=== PATIENT | female | born 1965 | race Caucasian/White ===

== ENCOUNTER → 2018-06-12 | Outpatient (CLI) | payer OTHER ==
[~2018-06-12] MED LIST: CALC625T23 PO; CRAN500C PO; CYAN1TAB29 PO; FAMO-79 PO; INUL1TAB4 PO; LORA10CA PO; MULT-658 PO; VALA500T4 PO
[2018-06-12 16:18] LABS: BASOPHILS # (AUTO) 0.07 x10^3/uL (0-0.1); BASOPHILS % (AUTO) 1 % (0-1); EOSINOPHILS # (AUTO) 0.21 x10^3/uL (0-0.4); EOSINOPHILS % (AUTO) 2 % (1-7); LYMPHOCYTES # (AUTO) 2.56 x10^3/uL (1-3.4); LYMPHOCYTES % (AUTO) 28 % (22-44); MD NO; MEAN CORPUSCULAR HEMOGLOBIN 31.3 pg (27.0-34.8); MEAN CORPUSCULAR HGB CONC 33.6 g/dL (32.4-35.8); MEAN CORPUSCULAR VOLUME 93.2 fL (80-100); MEAN PLATELET VOLUME 8.1 fL (7.4-10.4); MONOCYTES # (AUTO) 0.67 x10^3/uL (0.2-0.8); MONOCYTES % (AUTO) 7 % (2-9); NEUTROPHILS # (AUTO) 5.74 x10^3/uL (1.8-6.8); NEUTROPHILS % (AUTO) 62 % (42-75); PLATELET COUNT 323 x10^3/uL (130-400); RED BLOOD COUNT 4.68 x10^6/uL (3.82-5.3)
[2018-06-12 16:30] LABS: ALBUMIN 3.9 g/dL (3.4-5.0); ANION GAP 7 mmol/L (5-15); CALCIUM 10.2 mg/dL (8.5-10.1); CHLORIDE 105 mmol/L (98-107)
[2018-06-12 16:33] LABS: ALANINE AMINOTRANSFERASE 29 U/L (12-78); ALKALINE PHOSPHATASE 61 U/L (45-117); BILIRUBIN,TOTAL 0.9 mg/dL (0.2-1.0); TOTAL PROTEIN 7.4 g/dL (6.4-8.2)
== END | disposition home or self-care (01) ==
LOC: STAR 15:25
PROVIDERS: ATTEND Surgery
DX: Z01.818 Encounter for other preprocedural examination (principal); Z88.2 Allergy status to sulfonamides; Z88.5 Allergy status to narcotic agent
CPT/HCPCS: 36415; 71046; 80053; 85025; 93005

== ENCOUNTER 2018-06-26 06:14 | Inpatient (IN) | payer OTHER ==
[2018-06-12 15:47] VITALS: BP 119/84
[~2018-06-26] VITALS: Ht 162.6 cm; Wt 81.0 kg
[2018-06-26] MEDS ORDERED: FAMOTIDINE 20 MG TABLET PO ONE (06:30)
[2018-06-26] MEDS ORDERED: ACETAMINOPHEN 500 MG TABLET PO ONE (06:30)
[2018-06-26] MEDS ORDERED: GABAPENTIN 300 MG CAPSULE PO ONE (06:30)
[2018-06-26] MEDS ORDERED: SCOPOLAMINE PATCH, 1.5MG PATCH.TD72 TD ONE (06:30)
[2018-06-26] MEDS ORDERED: METOCLOPRAMIDE 10MG TABLET PO ONE (06:30)
[2018-06-26] MEDS ORDERED: KETAMINE 10 MG/ML, 20ML ONE (06:51)
[2018-06-26] MEDS ORDERED: FENTANYL PF 100 MCG/2ML ONE (06:51)
[2018-06-26] MEDS ORDERED: MIDAZOLAM 1 MG/ML, 2ML ONE (06:51)
[2018-06-26] MEDS ORDERED: PROPOFOL 10 MG/ML, 20ML ONE ×2 (06:51→08:18)
[2018-06-26] MEDS ORDERED: ROCURONIUM 10MG/ML,5ML ONE (06:53)
[2018-06-26] MEDS ORDERED: SUCCINYLCHOLINE 20 MG/ML, 10ML ONE ×2 (06:53→08:18)
[2018-06-26] MEDS ORDERED: LACTATED RINGERS 1,000 ML IV SCH (06:54)
[2018-06-26] MEDS ORDERED: LIDOCAINE-MPF 1%, 2ML INFIL ONE (07:00)
[2018-06-26] MEDS ORDERED: METR500T PO (07:01)
[2018-06-26] MEDS ORDERED: NEOMYCIN PO (07:01)
[2018-06-26] MEDS ORDERED: ESTROGEN PATCH TP (07:01)
[2018-06-26] MEDS ORDERED: INDOCYANINE GREEN 25 MG VIAL ONE ×2 (07:02→14:32)
[2018-06-26] MEDS ORDERED: BUPIVACAINE/PF 0.5% ONE (07:02)
[2018-06-26] MEDS ORDERED: cloniDINE/PF 100 MCG/ML, 10 ML ONE (07:11)
[2018-06-26] MEDS ORDERED: ONDANSETRON ODT 8 MG PO ONE (07:30)
[2018-06-26] MEDS ORDERED: PROPOFOL 50 ML ONE (07:40)
[2018-06-26] MEDS ORDERED: ROCURONIUM 10 MG/ML,10ML ONE (08:18)
[2018-06-26] MEDS ORDERED: NEOSTIGMINE 1 MG/ML, 10ML ONE (08:18)
[2018-06-26] MEDS ORDERED: PROPOFOL 10 MG/ML, 50ML ONE (08:18)
[2018-06-26] MEDS ORDERED: CEFOTETAN 2 GM ONE (08:18)
[2018-06-26] MEDS ORDERED: GLYCOPYRROLATE 0.2MG/1ML, 5ML ONE (08:18)
[2018-06-26] MEDS ORDERED: DEXAMETHASONE 4 MG/ML, 1ML ONE (08:18)
[2018-06-26] MEDS ORDERED: PROPOFOL 100 ML ONE (09:22)
[2018-06-26] MEDS ORDERED: OXYcodone 5 MG/5 ML ORAL.SOL UDC PO PRN (10:00)
[2018-06-26] MEDS ORDERED: PROMETHAZINE 25 MG/ML, 1ML IV PRN (10:00)
[2018-06-26] MEDS ORDERED: ALBUTEROL SULFATE 2.5 MG/3 ML NPPB PRN (10:00)
[2018-06-26] MEDS ORDERED: HYDROmorphone 1 MG/ML, 1ML IV PRN (10:00)
[2018-06-26] MEDS ORDERED: FENTANYL PF 100 MCG/2ML IV PRN (10:00)
[2018-06-26] MEDS ORDERED: MEPERIDINE/PF 25MG/0.5ML IVPush PRN (10:00)
[2018-06-26] MEDS ORDERED: OXYcodone 5 MG/5 ML ORAL.SOL UDC ONE (10:45)
[2018-06-26] MEDS ORDERED: LORazepam 1MG TABLET PO PRN (13:30)
[2018-06-26] MEDS ORDERED: D5%-0.45NACL+KCL 20MEQ 1,000 ML IV SCH (13:30)
[2018-06-26] MEDS ORDERED: CALCIUM CARBONATE 500 MG TAB.CHEW PO PRN (13:30)
[2018-06-26] MEDS ORDERED: HYDROmorphone 1 MG/ML, 1ML IVPush PRN (13:30)
[2018-06-26] MEDS ORDERED: DIPHENHYDRAMINE 50 MG/ML, 1ML IVPush PRN (13:30)
[2018-06-26] MEDS ORDERED: DIPHENHYDRAMINE 25 MG CAPSULE PO PRN (13:30)
[2018-06-26] MEDS ORDERED: OXYcodone IR 5MG TABLET PO PRN (13:30)
[2018-06-26] MEDS ORDERED: ONDANSETRON 2MG/ML, 2ML IV PRN (13:30)
[2018-06-26] MEDS ORDERED: SCOPOLAMINE PATCH, 1.5MG PATCH.TD72 TD PRN (13:30)
[2018-06-26] MEDS ORDERED: DEXAMETHASONE 4 MG/ML, 1ML IVPush PRN (13:30)
[2018-06-26] MEDS ORDERED: LORazepam 2 MG/ML, 1ML IVPush PRN (13:30)
[2018-06-26] MEDS ORDERED: HALOPERIDOL 5 MG/ML IVPush PRN (13:30)
[2018-06-26 13:40] VITALS: BP 144/91
[2018-06-26] MEDS: ACETAMINOPHEN 100 ML IVPB SCH ×2 (13:59→20:38)
[2018-06-26] MEDS: IBUPROFEN 800 MG TABLET PO SCH ×2 (15:56→19:09)
[2018-06-26 20:21] VITALS: BP 109/75
[2018-06-26] MEDS: FAMOTIDINE 20 MG TABLET PO SCH (20:59)
[2018-06-26] MEDS ORDERED: ESTRADIOL TP ONE (22:30)
[2018-06-27 00:21] VITALS: BP 123/86
[2018-06-27] MEDS: IBUPROFEN 800 MG TABLET PO SCH ×3 (00:25→21:06)
[2018-06-27] MEDS: ACETAMINOPHEN 100 ML IVPB SCH ×2 (01:40→08:31)
[2018-06-27 03:42] LABS: MEAN CORPUSCULAR HEMOGLOBIN 32.2 pg (27.0-34.8); MEAN CORPUSCULAR HGB CONC 34.4 g/dL (32.4-35.8); MEAN CORPUSCULAR VOLUME 93.5 fL (80-100); MEAN PLATELET VOLUME 8.4 fL (7.4-10.4); PLATELET COUNT 320 x10^3/uL (130-400); RED BLOOD COUNT 3.84 x10^6/uL (3.82-5.3); RED CELL DISTRIBUTION WIDTH 12.8 % (9.6-15.2)
[2018-06-27 03:43] LABS: ANION GAP 7 mmol/L (5-15); CALCIUM 8.1 mg/dL (8.5-10.1); CHLORIDE 105 mmol/L (98-107); CREATININE 0.72 mg/dL (0.55-1.02)
[2018-06-27 03:56] VITALS: BP 120/84
[2018-06-27 04:30] LABS: BASOPHILS # (AUTO) 0.01 x10^3/uL (0-0.1); BASOPHILS % (AUTO) 0 % (0-1); EOSINOPHILS % (AUTO) 0 % (1-7); LYMPHOCYTES # (AUTO) 1.48 x10^3/uL (1-3.4); LYMPHOCYTES % (AUTO) 11 % (22-44); MD SCAN; MONOCYTES # (AUTO) 1.49 x10^3/uL (0.2-0.8); MONOCYTES % (AUTO) 11 % (2-9); NEUTROPHILS # (AUTO) 10.98 x10^3/uL (1.8-6.8); NEUTROPHILS % (AUTO) 79 % (42-75)
[2018-06-27 07:39] VITALS: BP 129/84
[2018-06-27] MEDS: ENOXAPARIN 40 MG/0.4 ML SQ SCH (08:31)
[2018-06-27] MEDS: VALACYCLOVIR 500MG TABLET PO SCH (08:31)
[2018-06-27] MEDS: FAMOTIDINE 20 MG TABLET PO SCH ×2 (08:31→21:06)
[2018-06-27] MEDS: LORATADINE 10 MG TABLET PO SCH (08:31)
[2018-06-27] MEDS: D5%-0.45NACL+KCL 20MEQ 1,000 ML IV SCH (12:57)
[2018-06-27 13:30] VITALS: BP 113/73
[2018-06-27 20:00] VITALS: BP 118/74
[2018-06-28] MEDS: D5%-0.45NACL+KCL 20MEQ 1,000 ML IV SCH ×2 (01:23→15:55)
[2018-06-28 05:05] VITALS: BP 106/68
[2018-06-28 05:33] LABS: BASOPHILS # (AUTO) 0.01 x10^3/uL (0-0.1); BASOPHILS % (AUTO) 0 % (0-1); EOSINOPHILS # (AUTO) 0.16 x10^3/uL (0-0.4); EOSINOPHILS % (AUTO) 2 % (1-7); LYMPHOCYTES % (AUTO) 19 % (22-44); MD NO; MEAN CORPUSCULAR HEMOGLOBIN 31.9 pg (27.0-34.8); MEAN CORPUSCULAR HGB CONC 34.3 g/dL (32.4-35.8); MEAN CORPUSCULAR VOLUME 93.1 fL (80-100); MEAN PLATELET VOLUME 8.2 fL (7.4-10.4); MONOCYTES # (AUTO) 0.91 x10^3/uL (0.2-0.8); MONOCYTES % (AUTO) 10 % (2-9); NEUTROPHILS # (AUTO) 6.14 x10^3/uL (1.8-6.8); NEUTROPHILS % (AUTO) 69 % (42-75); PLATELET COUNT 250 x10^3/uL (130-400); RED BLOOD COUNT 3.17 x10^6/uL (3.82-5.3); RED CELL DISTRIBUTION WIDTH 13.2 % (9.6-15.2)
[2018-06-28 05:38] LABS: ANION GAP 5 mmol/L (5-15); CALCIUM 7.9 mg/dL (8.5-10.1); CHLORIDE 109 mmol/L (98-107); CREATININE 0.49 mg/dL (0.55-1.02)
[2018-06-28 07:00] VITALS: BP 127/71
[2018-06-28] MEDS: ENOXAPARIN 40 MG/0.4 ML SQ SCH (07:38)
[2018-06-28] MEDS: CYCLOBENZAPRINE 10 MG TABLET PO SCH ×2 (08:37→15:43)
[2018-06-28] MEDS: LORATADINE 10 MG TABLET PO SCH (08:37)
[2018-06-28] MEDS: IBUPROFEN 800 MG TABLET PO SCH ×2 (08:37→15:43)
[2018-06-28] MEDS: VALACYCLOVIR 500MG TABLET PO SCH (08:37)
[2018-06-28] MEDS: FAMOTIDINE 20 MG TABLET PO SCH ×2 (08:37→21:33)
[2018-06-28 14:00] VITALS: BP 124/58
[2018-06-28 18:30] VITALS: BP 123/75
[2018-06-29] MEDS: CYCLOBENZAPRINE 10 MG TABLET PO SCH ×3 (00:01→15:08)
[2018-06-29] MEDS: IBUPROFEN 800 MG TABLET PO SCH ×3 (00:01→15:08)
[2018-06-29 00:59] VITALS: BP 113/77
[2018-06-29 03:10] LABS: BASOPHILS # (AUTO) 0.04 x10^3/uL (0-0.1); BASOPHILS % (AUTO) 0 % (0-1); EOSINOPHILS % (AUTO) 6 % (1-7); LYMPHOCYTES # (AUTO) 2.08 x10^3/uL (1-3.4); LYMPHOCYTES % (AUTO) 23 % (22-44); MD NO; MEAN CORPUSCULAR HEMOGLOBIN 31.5 pg (27.0-34.8); MEAN CORPUSCULAR VOLUME 92.7 fL (80-100); MEAN PLATELET VOLUME 7.9 fL (7.4-10.4); MONOCYTES # (AUTO) 0.71 x10^3/uL (0.2-0.8); MONOCYTES % (AUTO) 8 % (2-9); NEUTROPHILS # (AUTO) 5.73 x10^3/uL (1.8-6.8); NEUTROPHILS % (AUTO) 63 % (42-75); PLATELET COUNT 306 x10^3/uL (130-400); RED CELL DISTRIBUTION WIDTH 13.1 % (9.6-15.2)
[2018-06-29 03:21] LABS: ANION GAP 4 mmol/L (5-15); CALCIUM 8.8 mg/dL (8.5-10.1); CHLORIDE 106 mmol/L (98-107); CREATININE 0.61 mg/dL (0.55-1.02)
[2018-06-29 07:22] VITALS: BP_SYST 113; BP_SYST 118; BP_DIAS 77; BP_DIAS 79
[2018-06-29] MEDS: D5%-0.45NACL+KCL 20MEQ 1,000 ML IV SCH (08:24)
[2018-06-29] MEDS: FAMOTIDINE 20 MG TABLET PO SCH (08:42)
[2018-06-29] MEDS: LORATADINE 10 MG TABLET PO SCH (08:42)
[2018-06-29] MEDS: VALACYCLOVIR 500MG TABLET PO SCH (08:42)
[2018-06-29 13:09] VITALS: BP 116/77
[2018-06-29] MEDS ORDERED: OXYC-302 PO (14:32)
== END 2018-06-29 15:12 | disposition home or self-care (01) | DRG 331 ==
LOC: ORIP 06:14 → 4NOR 12:02
PROVIDERS: ADMIT Surgery; ATTEND Surgery
PROC: 8E0W4CZ Robotic Assisted Procedure of Trunk Region, Percutaneous Endoscopic Approach (ICD-10-PCS; 2018-06-26)
PROC: 0DBN4ZZ Excision of Sigmoid Colon, Percutaneous Endoscopic Approach (ICD-10-PCS; principal; 2018-06-26 07:30)
DX: N82.3 Fistula of vagina to large intestine (principal); K21.9 Gastro-esophageal reflux disease without esophagitis; R32 Unspecified urinary incontinence; Z88.5 Allergy status to narcotic agent; Z88.2 Allergy status to sulfonamides; Z88.8 Allergy status to other drugs, medicaments and biological substances; Z90.710 Acquired absence of both cervix and uterus; Z82.5 Family history of asthma and other chronic lower respiratory diseases; Z80.0 Family history of malignant neoplasm of digestive organs; Z83.3 Family history of diabetes mellitus; Z80.59 Family history of malignant neoplasm of other urinary tract organ; Z80.8 Family history of malignant neoplasm of other organs or systems; Z82.49 Family history of ischemic heart disease and other diseases of the circulatory system; Z83.49 Family history of other endocrine, nutritional and metabolic diseases; M85.80 Other specified disorders of bone density and structure, unspecified site
CPT/HCPCS: 36415; J3490; S0074; 80048; 85025; 86850; 86900; 88307; G0378; J0131; J1100; J1650; J2250; J2704; J2710; J3010; Q0162; J0330; J0735; J1200; J7120; Q0163

== ENCOUNTER → 2018-08-29 | Outpatient (CLI) | payer OTHER ==
[~2018-08-29] MED LIST changes: +ESTROGEN PATCH TP; +METR500T PO; +NEOMYCIN PO; +OXYC-302 PO
== END | disposition home or self-care (01) ==
LOC: CFH 08:56
PROVIDERS: ATTEND Nurse Practitioner Family
DX: Z13.820 Encounter for screening for osteoporosis (principal); M85.88 Other specified disorders of bone density and structure, other site; M80.00XA Age-related osteoporosis with current pathological fracture, unspecified site, initial encounter for fracture; N95.1 Menopausal and female climacteric states
CPT/HCPCS: 77080

== ENCOUNTER 2019-10-02 15:18 | Inpatient (IN) | payer OTHER ==
[~2019-10-02] VITALS: Ht 162.6 cm; Wt 82.9 kg
[2019-10-02] MEDS ORDERED: HYDR200T72 PO (15:30)
--- NOTE | 2019-10-02 15:37 | NUR ---
PT HAS CO DERMITITIS, ALLERGIC REACTION TO POSSIBLY NEW MEDICINE PLAQUENIL. PT STATES SHE STARTED THE MED 3 WEEKS AND RED RASH DEVEOLPED ALL OVER BODY. PT WENT ON STERIODS BUT IT DID NOT HELP. PT STATES THE RASH BECAME MORE RED AND WAS SENT FROM HER PRIMARY DR. PT RECENTLY HAD CHEMICAL ALLERGY TEST DONE AND IS ALLERGIC TO MANY FORMS OF CHEMICALS. PT IS STABLE, NOT IN ANY DISTRESS.
[2019-10-02] MEDS ORDERED: FLUORESCEIN OPHTHALMIC 1 MG STRIP ONE (16:11)
[2019-10-02] MEDS ORDERED: hydrOXyzine 50MG TABLET ONE (16:25)
[2019-10-02] MEDS ORDERED: methylPREDNISolone SOD SUCC 125 MG/2 ML ONE (16:25)
[2019-10-02] MEDS ORDERED: methylPREDNISolone SOD SUCC 125 MG/2 ML IVPush ONE (16:30)
[2019-10-02] MEDS ORDERED: SODIUM CHLORIDE FLUSH 10ML SYR IVF ONE (16:30)
[2019-10-02] MEDS ORDERED: SODIUM CHLORIDE 0.9% 1,000ML IVBOLUS ONE (16:30)
--- NOTE | 2019-10-02 16:50 | NUR ---
US AT BEDSIDE. WILL MEDICATE AND START IV WHEN FINISHED
[2019-10-02] MEDS ORDERED: TEMAZEPAM 15 MG CAPSULE PO PRN (17:00)
[2019-10-02] MEDS ORDERED: ACETAMINOPHEN 325 MG TABLET PO PRN (17:00)
[2019-10-02] MEDS ORDERED: IBUPROFEN 600 MG TABLET PO PRN (17:00)
[2019-10-02] MEDS ORDERED: BUTALB/APAP/CAFFEINE 50MG/325MG/40MG PO PRN ×2 (17:00)
[2019-10-02] MEDS ORDERED: ONDANSETRON 2MG/ML, 2ML IVPush PRN (17:00)
[2019-10-02] MEDS ORDERED: ONDANSETRON ODT 4 MG PO PRN (17:00)
[2019-10-02] MEDS ORDERED: CYCLOBENZAPRINE 10 MG TABLET PO PRN (17:00)
[2019-10-02] MEDS ORDERED: POLYETHYLENE GLYCOL 17 GM PACKET PO PRN (17:00)
[2019-10-02] MEDS ORDERED: hydrALAzine 20 MG/ML, 1ML IVPush PRN (17:00)
--- NOTE | 2019-10-02 17:08 | NUR ---
[facility] AT BEDSIDE
--- NOTE | 2019-10-02 17:58 | NUR ---
ASSIST PRIMARY, 22 GUAGE PLACED TO R HAND. CALL LIGHT WITHIN REACH.
--- NOTE | 2019-10-02 18:50 | NUR ---
REPORT ATTEMPT X1
[2019-10-02 19:54] VITALS: BP 114/74
[2019-10-02] MEDS: hydrOXyzine 50MG TABLET PO PRN (21:30)
[2019-10-03] MEDS: methylPREDNISolone SOD SUCC 125 MG/2 ML IVPush SCH ×3 (00:01→15:18)
[2019-10-03 02:25] VITALS: BP 101/67
[2019-10-03 05:50] LABS: BASOPHILS % (AUTO) 0 % (0-1); EOSINOPHILS # (AUTO) 0.12 x10^3/uL (0-0.4); EOSINOPHILS % (AUTO) 1 % (1-7); LYMPHOCYTES # (AUTO) 0.93 x10^3/uL (1-3.4); LYMPHOCYTES % (AUTO) 7 % (22-44); MD NO; MEAN CORPUSCULAR HEMOGLOBIN 32.2 pg (27.0-34.8); MEAN CORPUSCULAR HGB CONC 33.2 g/dL (32.4-35.8); MEAN CORPUSCULAR VOLUME 96.9 fL (80-100); MEAN PLATELET VOLUME 8.3 fL (7.4-10.4); MONOCYTES # (AUTO) 0.12 x10^3/uL (0.2-0.8); MONOCYTES % (AUTO) 1 % (2-9); NEUTROPHILS # (AUTO) 12.64 x10^3/uL (1.8-6.8); NEUTROPHILS % (AUTO) 92 % (42-75); PLATELET COUNT 311 x10^3/uL (130-400); RED BLOOD COUNT 4.34 x10^6/uL (3.82-5.3); RED CELL DISTRIBUTION WIDTH 12.6 % (9.6-15.2)
[2019-10-03 06:00] LABS: ANION GAP 7 mmol/L (5-15); CALCIUM 8.5 mg/dL (8.5-10.1); CHLORIDE 111 mmol/L (98-107); CREATININE 0.65 mg/dL (0.55-1.02)
[2019-10-03 08:19] VITALS: BP 115/74
[2019-10-03 14:02] VITALS: BP 120/80
[2019-10-03] MEDS: hydrOXyzine 50MG TABLET PO PRN ×2 (14:28→21:08)
[2019-10-03 19:13] VITALS: BP 114/75
[2019-10-04] MEDS: methylPREDNISolone SOD SUCC 125 MG/2 ML IVPush SCH ×2 (00:06→08:03)
[2019-10-04 02:21] VITALS: BP 106/68
[2019-10-04 08:00] LABS: MEAN CORPUSCULAR HEMOGLOBIN 31.5 pg (27.0-34.8); MEAN CORPUSCULAR HGB CONC 32.8 g/dL (32.4-35.8); MEAN PLATELET VOLUME 8.1 fL (7.4-10.4); PLATELET COUNT 327 x10^3/uL (130-400); RED BLOOD COUNT 4.42 x10^6/uL (3.82-5.3); RED CELL DISTRIBUTION WIDTH 12.6 % (9.6-15.2)
[2019-10-04] MEDS: hydrOXyzine 50MG TABLET PO PRN (08:03)
[2019-10-04 08:09] LABS: ALANINE AMINOTRANSFERASE 26 U/L (12-78); ALBUMIN 3.3 g/dL (3.4-5.0); ANION GAP 7 mmol/L (5-15); CALCIUM 8.9 mg/dL (8.5-10.1); CHLORIDE 111 mmol/L (98-107); CREATININE 0.74 mg/dL (0.55-1.02)
[2019-10-04 08:11] LABS: ALKALINE PHOSPHATASE 49 U/L (45-117); BILIRUBIN,TOTAL 0.3 mg/dL (0.2-1.0)
[2019-10-04 08:29] VITALS: BP 129/84
[2019-10-04] MEDS ORDERED: PRED20TA PO (08:59)
[2019-10-04] MEDS ORDERED: HYDR50TA13 PO (08:59)
[2019-10-04 09:01] LABS: BASOPHILS # (AUTO) 0.01 x10^3/uL (0-0.1); BASOPHILS % (AUTO) 0 % (0-1); EOSINOPHILS % (AUTO) 0 % (1-7); LYMPHOCYTES % (AUTO) 6 % (22-44); MD SCAN; MONOCYTES # (AUTO) 0.45 x10^3/uL (0.2-0.8); MONOCYTES % (AUTO) 3 % (2-9); NEUTROPHILS # (AUTO) 15.61 x10^3/uL (1.8-6.8); NEUTROPHILS % (AUTO) 91 % (42-75)
== END 2019-10-04 10:48 | disposition home or self-care (01) | DRG 607 ==
LOC: ED 16:20 → EDIP 16:21 → ED 16:30 → 3N 19:34 → DCLOUNGE 10-04 10:32
PROVIDERS: ADMIT Internal Medicine; ATTEND Family Medicine
DX: L27.0 Generalized skin eruption due to drugs and medicaments taken internally (principal); L51.1 Stevens-Johnson syndrome; D72.829 Elevated white blood cell count, unspecified; T38.0X5A Adverse effect of glucocorticoids and synthetic analogues, initial encounter; Z90.49 Acquired absence of other specified parts of digestive tract; Z90.710 Acquired absence of both cervix and uterus
CPT/HCPCS: 36415; 80048; 80053; 83735; 85025; 93970; G0378; J2930; J7030; Q0177

== ENCOUNTER 2019-10-15 16:40 | Emergency (ER) | payer OTHER ==
[~2019-10-15] VITALS: Ht 162.6 cm; Wt 81.6 kg
[~2019-10-15 16:40] MED LIST changes: +HYDR200T72 PO; +HYDR50TA13 PO; +PRED20TA PO
[2019-10-15 18:34] VITALS: BP 120/70
--- NOTE | 2019-10-15 18:38 | NUR ---
FIRST CONTACT WITH PT. PT RESTING IN [facility], [facility] NOTED. PT REPORTS L CALF PAIN AND "WHITE TOES" X TWO DAYS SP DC FROM [facility] FOR TREATMENT OF DRESS SYNDROME. PT REPORTS HAVING BASELINE CHRONIC INFLAMMATORY DISEASE AND REACTION TO A NEW MEDICATIONS APPROX TWENTY DAYS AGO. PT HAS FINISHED PO STEROID RX. BLE APPEAR ERYTHEMATOUS, EDEMATOUS, W/ DIFFUSE SKIN SLUFFING. +TENDER TO LIGHT PALPATION. DIFFUSE PETICHIAE NOTED. LEFT TOES APPEAR PALE. US IN PROGRESS. BP/SPO2 MONITOR IN PLACE. SO AT BEDSIDE.
--- NOTE | 2019-10-15 19:01 | NUR ---
REPORT TO TEJINDER HERNÁNDEZ
== END 2019-10-15 20:39 | disposition home or self-care (01) ==
LOC: ED 20:20
CPT/HCPCS: 99284

== ENCOUNTER → 2020-06-18 | Outpatient (CLI) | payer OTHER ==
[~2020-06-18] MED LIST changes: +ESTROGEN CREAM VG; -HYDR50TA13 PO; +HYDR50TA99 PO; +STERIOD CREAM TP
[2020-06-18 14:18] LABS: BASOPHILS # (AUTO) 0.02 x10^3/uL (0-0.1); BASOPHILS % (AUTO) 0 % (0-1); EOSINOPHILS # (AUTO) 0.18 x10^3/uL (0-0.4); EOSINOPHILS % (AUTO) 2 % (1-7); LYMPHOCYTES % (AUTO) 33 % (22-44); MD NO; MEAN CORPUSCULAR HEMOGLOBIN 31.4 pg (27.0-34.8); MEAN CORPUSCULAR HGB CONC 33.5 g/dL (32.4-35.8); MEAN CORPUSCULAR VOLUME 93.7 fL (80-100); MEAN PLATELET VOLUME 8.4 fL (7.4-10.4); MONOCYTES # (AUTO) 0.76 x10^3/uL (0.2-0.8); MONOCYTES % (AUTO) 9 % (2-9); NEUTROPHILS # (AUTO) 4.64 x10^3/uL (1.8-6.8); NEUTROPHILS % (AUTO) 56 % (42-75); PLATELET COUNT 348 x10^3/uL (130-400); RED BLOOD COUNT 4.89 x10^6/uL (3.82-5.3); RED CELL DISTRIBUTION WIDTH 12.5 % (9.6-15.2)
[2020-06-18 14:46] LABS: ALANINE AMINOTRANSFERASE 32 U/L (12-78); ALBUMIN 4.1 g/dL (3.4-5.0); ANION GAP 10 mmol/L (5-15); CALCIUM 9.7 mg/dL (8.5-10.1); CHLORIDE 107 mmol/L (98-107); CREATININE 0.68 mg/dL (0.55-1.02)
[2020-06-18 14:48] LABS: ALKALINE PHOSPHATASE 68 U/L (45-117); BILIRUBIN,TOTAL 0.5 mg/dL (0.2-1.0); TOTAL PROTEIN 7.8 g/dL (6.4-8.2)
== END | disposition home or self-care (01) ==
LOC: STAR 13:06
PROVIDERS: ATTEND Surgery
DX: Z01.818 Encounter for other preprocedural examination (principal); Z11.59 Encounter for screening for other viral diseases
CPT/HCPCS: 36415; 80053; 83690; 85025; 87635

== ENCOUNTER 2020-06-23 07:45 | Day surgery (SDC) | payer OTHER ==
[~2020-06-23] VITALS: Ht 162.6 cm; Wt 80.2 kg
[2020-06-23] MEDS ORDERED: LACTATED RINGERS 1,000 ML IV SCH (08:51)
[2020-06-23 08:52] VITALS: BP 114/74
[2020-06-23] MEDS ORDERED: CHLORHEXIDINE 15 ML UDC MM ONE (09:00)
[2020-06-23] MEDS ORDERED: FENTANYL PF 250 MCG/5ML ONE (09:11)
[2020-06-23] MEDS ORDERED: PROPOFOL 50 ML ONE (09:11)
[2020-06-23] MEDS ORDERED: MIDAZOLAM 1 MG/ML, 2ML ONE (09:11)
[2020-06-23] MEDS ORDERED: INDOCYANINE GREEN 25 MG VIAL ONE (09:27)
[2020-06-23] MEDS ORDERED: INDOCYANINE GREEN 25 MG VIAL IV ONE (09:30)
[2020-06-23] MEDS ORDERED: CEFAZOLIN PMX 2GM/100ML ONE (10:38)
[2020-06-23] MEDS ORDERED: BUPIVACAINE/PF 0.5% ONE (10:41)
[2020-06-23] MEDS ORDERED: SUCCINYLCHOLINE 20 MG/ML, 10ML ONE (10:51)
[2020-06-23] MEDS ORDERED: ONDANSETRON 2MG/ML, 2ML ONE (10:51)
[2020-06-23] MEDS ORDERED: DEXAMETHASONE 4 MG/ML, 1ML ONE (10:51)
[2020-06-23] MEDS ORDERED: PROMETHAZINE 25 MG/ML, 1ML IVPush PRN (11:00)
[2020-06-23] MEDS ORDERED: HYDROmorphone 1 MG/ML, 1ML INJ IVPush PRN (11:00)
[2020-06-23] MEDS ORDERED: ONDANSETRON 2MG/ML, 2ML IVPush PRN (11:00)
[2020-06-23] MEDS ORDERED: EPHEDRINE 50 MG/ML, 1ML IVPush PRN (11:00)
[2020-06-23] MEDS ORDERED: OXYcodone 5 MG/5 ML ORAL.SOL UDC PO PRN (11:00)
[2020-06-23] MEDS ORDERED: MIDAZOLAM 1 MG/ML, 2ML IV PRN (11:00)
[2020-06-23] MEDS ORDERED: LABETALOL 5MG/ML, 20ML IV PRN (11:00)
[2020-06-23] MEDS ORDERED: MEPERIDINE/PF 25MG/0.5ML IVPush PRN (11:00)
[2020-06-23] MEDS ORDERED: EPHEDRINE 50 MG/ML, 1ML IM PRN (11:00)
[2020-06-23] MEDS ORDERED: DIPHENHYDRAMINE 50 MG/ML, 1ML IVPush PRN (11:00)
[2020-06-23] MEDS ORDERED: DIAZEPAM 5 MG/ML, 2ML IVPush PRN (11:00)
[2020-06-23] MEDS ORDERED: FENTANYL PF 100 MCG/2ML ONE (12:07)
[2020-06-23] MEDS: FENTANYL PF 100 MCG/2ML IV PRN ×2 (12:20→12:37)
[2020-06-23] MEDS ORDERED: OXYcodone 5 MG/5 ML ORAL.SOL UDC ONE (12:40)
[2020-06-23] MEDS ORDERED: HYDROmorphone 1 MG/ML, 1ML INJ ONE (12:40)
== END 2020-06-23 14:40 | disposition home or self-care (01) ==
LOC: OUT 07:45
PROVIDERS: ATTEND Surgery
DX: K80.10 Calculus of gallbladder with chronic cholecystitis without obstruction (principal); K21.9 Gastro-esophageal reflux disease without esophagitis; M85.88 Other specified disorders of bone density and structure, other site; F17.210 Nicotine dependence, cigarettes, uncomplicated; Z88.1 Allergy status to other antibiotic agents; Z88.2 Allergy status to sulfonamides; Z88.8 Allergy status to other drugs, medicaments and biological substances; Z91.012 Allergy to eggs; Z98.890 Other specified postprocedural states; Z90.49 Acquired absence of other specified parts of digestive tract; Z90.710 Acquired absence of both cervix and uterus; Z79.899 Other long term (current) drug therapy; Z72.89 Other problems related to lifestyle; Z83.3 Family history of diabetes mellitus; Z80.0 Family history of malignant neoplasm of digestive organs; Z82.49 Family history of ischemic heart disease and other diseases of the circulatory system
CPT/HCPCS: 47563; 88304; J0330; J0690; J1100; J2250; J2405; J2704; J3010; J7120